=== PATIENT | female | born 1985 | race Caucasian/White ===

== ENCOUNTER 2024-03-08 19:16 | Emergency (ER) | payer MEDICAID ==
[~2024-03-08] VITALS: Ht 177.8 cm; Wt 73.0 kg
[2024-03-08 19:19] VITALS: O2SAT 97
[2024-03-08] MEDS: ACETAMINOPHEN 325MG TABLET PO ONE (21:00)
[2024-03-08] MEDS ORDERED: TOPUD PO (21:44)
[2024-03-08 22:00] VITALS: BP 122/66; PULSE 79; RESP 18; TEMP 97.8
== END 2024-03-08 22:36 | disposition home or self-care (01) ==
LOC: ER 19:16
DX: M25.562 Pain in left knee (principal); M25.572 Pain in left ankle and joints of left foot; J45.909 Unspecified asthma, uncomplicated
CPT/HCPCS: 73560; 73600; 99284; Z7610; L1830